=== PATIENT | female | born 1975 | race African-American/Black ===

== ENCOUNTER 2022-08-16 15:25 | Emergency (ER) | payer SELFPAY ==
[2022-08-16] MEDS ORDERED: Sodium Chloride 0.9% 1,000 ML IV STA (15:55)
[2022-08-16] MEDS ORDERED: Ondansetron 4 MG/2 ML SDV IVPUSH ONE (15:55)
[2022-08-16] MEDS ORDERED: Sodium Chloride 0.9% 10 ML Syringe FLUSH PRN (15:55)
[2022-08-16 16:45] LABS: ESTIMATED GFR 108 mL/min (>60)
[2022-08-16] MEDS ORDERED: cefTRIAXone 2 GM in Sodium Chloride 0.9% 100 ML IV ONE (17:53)
== END 2022-08-16 19:12 | disposition home or self-care (01) ==
LOC: JD.ED 15:25
DX: A08.4 Viral intestinal infection, unspecified (principal); N30.00 Acute cystitis without hematuria
CPT/HCPCS: 36415; 80053; 81001; 81025; 83735; 85025; 86140; 87086; 87088; 87186; 96361; 96365; 96375; 99284; J0696; J2405; J3490; J7030